=== PATIENT | female | born 1950 | race Caucasian/White ===

== ENCOUNTER → 2019-09-21 08:07 | Outpatient (BNVA) | payer MEDICARE, OTHER, SELFPAY | PROVIDERS: Family Provider Nurse Practitioner; PCP Nurse Practitioner; Visit Provider Nurse Practitioner | DX: E11.22 Type 2 diabetes mellitus with diabetic chronic kidney disease (principal); I10 Essential (primary) hypertension | CPT/HCPCS: 80053; 80061; 83036; 84443; 85025 ==

== ENCOUNTER → 2019-12-21 08:00 | Outpatient (BNVA) | payer MEDICARE, OTHER, SELFPAY | PROVIDERS: Family Provider Nurse Practitioner; PCP Nurse Practitioner; Visit Provider Nurse Practitioner | DX: E11.22 Type 2 diabetes mellitus with diabetic chronic kidney disease (principal); E78.2 Mixed hyperlipidemia; I10 Essential (primary) hypertension | CPT/HCPCS: 80053; 80061; 83036; 84443; 85025 ==

== ENCOUNTER → 2020-03-28 08:47 | Outpatient (BNVA) | payer MEDICARE, OTHER, SELFPAY | PROVIDERS: Family Provider Nurse Practitioner; PCP Nurse Practitioner; Visit Provider Nurse Practitioner | DX: E11.22 Type 2 diabetes mellitus with diabetic chronic kidney disease (principal); I10 Essential (primary) hypertension; E78.2 Mixed hyperlipidemia | CPT/HCPCS: 80053; 80061; 83036; 84443; 85025 ==

== ENCOUNTER → 2020-07-02 08:05 | Outpatient (BNVA) | payer MEDICARE, OTHER, SELFPAY | PROVIDERS: Family Provider Nurse Practitioner; PCP Nurse Practitioner; Visit Provider Nurse Practitioner | DX: E11.22 Type 2 diabetes mellitus with diabetic chronic kidney disease (principal); N18.2 Chronic kidney disease, stage 2 (mild); I10 Essential (primary) hypertension; E78.2 Mixed hyperlipidemia | CPT/HCPCS: 80053; 80061; 83036; 84443; 85025 ==

== ENCOUNTER → 2020-09-26 08:16 | Outpatient (BNVA) | payer MEDICARE, OTHER, SELFPAY | PROVIDERS: Family Provider Nurse Practitioner; PCP Nurse Practitioner; Visit Provider Nurse Practitioner | DX: E11.22 Type 2 diabetes mellitus with diabetic chronic kidney disease (principal); N18.2 Chronic kidney disease, stage 2 (mild); I10 Essential (primary) hypertension; E78.2 Mixed hyperlipidemia | CPT/HCPCS: 80053; 80061; 83036; 84443; 85025 ==

== ENCOUNTER → 2020-12-24 08:23 | Outpatient (BNVA) | payer MEDICARE, OTHER, SELFPAY | PROVIDERS: Family Provider Nurse Practitioner; PCP Nurse Practitioner; Visit Provider Nurse Practitioner | DX: E11.22 Type 2 diabetes mellitus with diabetic chronic kidney disease (principal); N18.2 Chronic kidney disease, stage 2 (mild); E78.2 Mixed hyperlipidemia; I12.9 Hypertensive chronic kidney disease with stage 1 through stage 4 chronic kidney disease, or unspecified chronic kidney disease | CPT/HCPCS: 80053; 82043; 83036; 84443 ==

== ENCOUNTER → 2021-03-25 08:07 | Outpatient (BNVA) | payer MEDICARE, OTHER, SELFPAY | PROVIDERS: Family Provider Nurse Practitioner; PCP Nurse Practitioner; Visit Provider Nurse Practitioner | DX: E78.2 Mixed hyperlipidemia (principal); E11.22 Type 2 diabetes mellitus with diabetic chronic kidney disease; N18.2 Chronic kidney disease, stage 2 (mild); I12.9 Hypertensive chronic kidney disease with stage 1 through stage 4 chronic kidney disease, or unspecified chronic kidney disease | CPT/HCPCS: 80053; 80061; 82043; 83036; 85025 ==

== ENCOUNTER → 2021-04-28 14:40 | Outpatient (BNVA) | payer MEDICARE, OTHER, SELFPAY | PROVIDERS: Family Provider Nurse Practitioner; PCP Nurse Practitioner; Visit Provider Nurse Practitioner | DX: M17.11 Unilateral primary osteoarthritis, right knee (principal); M25.561 Pain in right knee | CPT/HCPCS: 73562 ==

== ENCOUNTER → 2021-06-16 09:13 | Outpatient (BNVA) | payer MEDICARE, OTHER, SELFPAY | PROVIDERS: Family Provider Nurse Practitioner; PCP Nurse Practitioner; Referring Provider Nurse Practitioner; Visit Provider Specialist | DX: M25.561 Pain in right knee (principal); M25.361 Other instability, right knee; M17.11 Unilateral primary osteoarthritis, right knee; M25.551 Pain in right hip | CPT/HCPCS: 73502; 73560; 73565 ==

== ENCOUNTER → 2021-06-17 07:59 | Outpatient (BNVA) | payer MEDICARE, OTHER, SELFPAY | PROVIDERS: Family Provider Nurse Practitioner; PCP Nurse Practitioner; Visit Provider Nurse Practitioner | DX: E11.22 Type 2 diabetes mellitus with diabetic chronic kidney disease (principal); N18.2 Chronic kidney disease, stage 2 (mild); I10 Essential (primary) hypertension | CPT/HCPCS: 80053; 80061; 83036; 85025 ==

== ENCOUNTER → 2021-06-19 08:36 | Outpatient (BNVA) | payer MEDICARE, OTHER, SELFPAY | PROVIDERS: Family Provider Nurse Practitioner; PCP Nurse Practitioner; Visit Provider Nurse Practitioner | DX: D72.829 Elevated white blood cell count, unspecified (principal); E11.22 Type 2 diabetes mellitus with diabetic chronic kidney disease; N18.2 Chronic kidney disease, stage 2 (mild) | CPT/HCPCS: 81000; 85025 ==

== ENCOUNTER 2021-08-29 16:37 | Emergency (ER) | payer MEDICARE, OTHER, SELFPAY ==
[2021-08-29 16:54] VITALS: BP 145/82; PULSE 88; RESP 16; TEMP 36.8; O2SAT 97; BMI 26.6
--- NOTE | 2021-08-29 17:09 | W.ED.GENADLT ---
Documented by User: TUNDE Reyes 08/29/21 19:49 HPI - General Adult General: Chief complaint: General Medical Stated complaint: Thinks there is a bone in throat, since wednesday Time Seen by Provider: 08/29/21 17:08 History of Present Illness: 71-year-old female comes in today with complaints of discomfort with swallowing at the sternal notch. Patient reports on Wednesday she was eating a piece of chicken and she bit into one of the ribs dislodging a piece of bone and swallowing. Patient thinks that she might have a piece of bone stuck in her throat. Patient reports continued discomfort. Patient denies any fever or chills. Patient appears well. Patient appears in mild to no pain. Patient does have a history of gastric reflux, allergic rhinitis, osteoarthritis, and type 2 diabetes. MD complaint: foreign body ingestion Onset (ago): day(s) Exacerbating factors: other (swallowing) Review of Systems General: Reports: 10 or more systems reviewed and unremarkable except in HPI and below GI: Reports: dysphagia (painful) PFSH ED PFSH: Medical History Allergic rhinitis due to pollen Essential (primary) hypertension Gastric reflux Mixed hyperlipidemia TRISTA on CPAP Personal history of smoking Type 2 diabetes mellitus with diabetic chronic kidney disease Surgical History H/O dilation and curettage (~10/2016) Hysteroscopic polypectomy with endometrial curetting [place] [facility] [place] of tubal ligation (~1979) Family History Other Diabetes Hypertension Stroke Social History Second hand smoke exposure: Yes Smoking risk assessment/counseling performed?: Yes Alcohol intake: never Desire information about alcohol rehabilitation?: No Counseling given: No Desire information about substance/drug rehabilitation?: No Counseling given: No Adopted: No Caregiver/support person: No Lives independently: Yes Household members: none Housing: House Marital status: Current occupational status: employed History of recent travel: No Current gender identity: Female Physical Exam Const: COMMON NORMALS: alert HENMT: THROAT: posterior oropharynx normal Neck/C-Spine: COMMON NORMALS: full ROM and no lymphadenopathy Resp: COMMON NORMALS: normal respiratory effort Cardio: COMMON NORMALS: regular rate and regular rhythm RATE: regular rate RHYTHM: regular rhythm Extremity: COMMON NORMALS: normal to inspection Neuro: SENSORIUM/ORIENTATION: Yes alert Psych: COMMON NORMALS: cooperative Course Vital Signs: Vital signs: Vital Signs Temperature 98.3 F 08/29/21 16:54 Pulse Rate 74 08/29/21 19:12 Respiratory Rate 16 08/29/21 19:12 Blood Pressure 120/76 08/29/21 19:12 Pulse Oximetry 95 08/29/21 19:12 [facility] - General Adult Medical Decision Making 71-year-old female comes in today with complaints of painful swallowing. On exam patient appears well. Posterior pharynx is normal. Respirations are even lungs are clear to auscultation. Abdomen soft nontender. Differential diagnosis includes esophagitis, retained foreign body to the esophagus, esophageal perforation. CT of the chest indicated no retained foreign body or signs of abscess or perforation of the esophagus. Recommended patient use Mylanta 4 times a day to help with the healing of the probable abrasion to the esophagus. I encourage plenty of fluids and follow-up with primary care in 3 days for recheck. Recommended patient return to the ER for inability to swallow or high fever. Lab Data Radiology Impressions Chest CT 08/29/21 17:30 IMPRESSION: 1. No acute finding. 2. 5 mm left pulmonary nodule. For patients at low risk (minimal or absent history of smoking and of other known risk factors), no routine follow-up is indicated. For patients at high risk (history of smoking or of other known risk factors), consider optional CT Chest at 12 months. (Reference: Danna) 3. Multiple small calcifications in the breasts. Correlation with mammography recommended. References: Danna Mcleod, et al. Guidelines for Management of Incidental Pulmonary Nodules Detected on CT Images: From the Fleischner Society 2017. Radiology. 2017;284(1):228-243. Discharge Plan Discharge Patient Disposition: Home Clinical Impression: Sensation of foreign body in esophagus Condition: Stable Prescriptions: New Antacid-Simethicone 400-400-40 mg/5 mL suspension 20 ml PO Q6H PRN (Reason: esophagitis) Qty: 240 0RF No Action (DME) pen needle, diabetic 33 gauge x 5/32 needle See Rx Instructions .ROUTE .MEDSUPPLY Qty: 100 11RF Rx Instructions: 2 times day aspirin [Adult Low Dose Aspirin] 81 mg tablet,delayed release (DR/EC) 81 mg PO DAILY 0RF cetirizine 10 mg tablet 10 mg PO DAILY Qty: 90 0RF Byetta 10 mcg/dose(250 mcg/mL) 2.4 mL pen injector 10 mcg SUBCUT BID Qty: 2.4 2RF famotidine 20 mg tablet 20 mg PO DAILY Qty: 90 0RF lisinopril 40 mg tablet 40 mg PO DAILY Qty: 90 0RF metformin 500 mg tablet extended release 24 hr 2,000 mg PO DAILY Qty: 360 0RF montelukast 10 mg tablet 10 mg PO DAILY Qty: 90 0RF meloxicam 15 mg tablet 15 mg PO DAILY Qty: 30 0RF Discharge Orders: Discharge ED (Routine); Ordered 08/29/21 Ordered By: Hakeem Tay Referrals: Dada Frias, BULLET SWAGING MACHINE OPERATOR-C [Primary Care Provider] - Discharge Diet: Advance as tolerated Discharge Activity: Increase activity as tolerated Patient Instructions: Esophagitis (ED), Opioid Safety Activity Restrictions/Additional Instructions: Use Mylanta 20 mL 4 times a day to help with pain and with swallowing. You probably caused an abrasion of your esophagus which is irritated and will be uncomfortable until healed. Using the Mylanta 4 times a day will help decrease acid production and allow for better healing of the abrasion. Eat a soft diet. Follow-up with primary care in 3 days for recheck. Return to ER for worsening symptoms such as inability to swallow, or fever greater than 100.4. 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 Fwd Exam Detailed Medical Decision Making Moderate Complexity Time Spent (min) 30 Documented by User: Yoshi Ochoa DO 08/29/21 21:20 HPI - General Adult General: Chief complaint: General Medical Stated complaint: Thinks there is a bone in throat, since wednesday Time Seen by Provider: 08/29/21 17:08 PFSH ED PFS: Medical History Allergic rhinitis due to pollen Essential (primary) hypertension Gastric reflux Mixed hyperlipidemia TRISTA on CPAP Personal history of smoking Type 2 diabetes mellitus with diabetic chronic kidney disease Surgical History H/O dilation and curettage (~10/2016) Hysteroscopic polypectomy with endometrial curetting Dr Sebastian [facility] [place] History of tubal ligation (~1979) Family History Other Diabetes Hypertension Stroke Social History Second hand smoke exposure: Yes Smoking risk assessment/counseling performed?: Yes Alcohol intake: never Desire information about alcohol rehabilitation?: No Counseling given: No Desire information about substance/drug rehabilitation?: No Counseling given: No Adopted: No Caregiver/support person: No Lives independently: Yes Household members: none Housing: House Marital status: Current occupational status: employed History of recent travel: No Current gender identity: Female Course Vital Signs: Vital signs: Vital Signs Temperature 98.3 F 08/29/21 16:54 Pulse Rate 74 08/29/21 19:12 Respiratory Rate 16 08/29/21 19:12 Blood Pressure 120/76 08/29/21 19:12 Pulse Oximetry 95 08/29/21 19:12 [facility] - General Adult Medical Decision Making 71-year-old female comes in today with complaints of painful swallowing. On exam patient appears well. Posterior pharynx is normal. Respirations are even lungs are clear to auscultation. Abdomen soft nontender. Differential diagnosis includes esophagitis, retained foreign body to the esophagus, esophageal perforation. CT of the chest indicated no retained foreign body or signs of abscess or perforation of the esophagus. Recommended patient use Mylanta 4 times a day to help with the healing of the probable abrasion to the esophagus. I encourage plenty of fluids and follow-up with primary care in 3 days for recheck. Recommended patient return to the ER for inability to swallow or high fever. This patient was originally seen by TUNDE Torres.? I agree with his history, evaluation, and treatment. Lab Data Radiology Impressions Chest CT 08/29/21 17:30
--- NOTE | 2021-08-29 17:30 | CTR_ITS ---
PROCEDURE INFORMATION: Exam: CT Chest Without Contrast; Diagnostic Exam date and time: 08/29/2021 5:30 PM Age: 71 years old Clinical indication: Sternal or substernal pain; Additional info: Foreign body ingestion TECHNIQUE: Imaging protocol: Diagnostic computed tomography of the chest without contrast. Radiation optimization: All CT scans at this facility use at least one of these dose optimization techniques: automated exposure control; mA and/or kV adjustment per patient size (includes targeted exams where dose is matched to clinical indication); or iterative reconstruction. COMPARISON: CR Ribs LEFT* [id number] 10/18/2018 11:36 AM RADIATION DOSE METRICS: Total DLP (mGy-cm): 631.55 FINDINGS: Lungs: Centrilobular emphysema. Calcified granulomas in the right middle lobe. 5 mm left lower lobe nodule, series 2, image 44. Mild atelectasis in the lung bases. Pleural spaces: Unremarkable. No pneumothorax. No pleural effusion. Heart: Coronary artery calcifications. The heart size is normal. Aorta: Unremarkable. No aortic aneurysm. Lymph nodes: Unremarkable. No enlarged lymph nodes. Bones/joints: Unremarkable. No acute fracture. Soft tissues: Numerous small calcifications in both breasts. Mild lipomatosis hypertrophy of the intra-atrial septum. CT/CT chest wo con [id number] IMPRESSION: 1. No acute finding. 2. 5 mm left pulmonary nodule. For patients at low risk (minimal or absent history of smoking and of other known risk factors), no routine follow-up is indicated. For patients at high risk (history of smoking or of other known risk factors), consider optional CT Chest at 12 months. (Reference: Danna) 3. Multiple small calcifications in the breasts. Correlation with mammography recommended. References: Danna Mcleod et al. Guidelines for Management of Incidental Pulmonary Nodules Detected on CT Images: From the Fleischner Society 2017. Radiology. 2017;284(1):228-243.
[2021-08-29 19:12] VITALS: BP 120/76; PULSE 74; RESP 16; O2SAT 95
[2021-08-29] MEDS: alum-mag-hydroxide-sime 30 mL UDC PO (19:47)
== END 2021-08-29 19:52 | disposition home or self-care (01) ==
PROVIDERS: Emergency Provider Nurse Practitioner Family; PCP Nurse Practitioner
DX: R09.89 Other specified symptoms and signs involving the circulatory and respiratory systems (principal); Z79.82 Long term (current) use of aspirin; Z79.84 Long term (current) use of oral hypoglycemic drugs; E78.2 Mixed hyperlipidemia; E11.22 Type 2 diabetes mellitus with diabetic chronic kidney disease; I12.9 Hypertensive chronic kidney disease with stage 1 through stage 4 chronic kidney disease, or unspecified chronic kidney disease; N18.9 Chronic kidney disease, unspecified
CPT/HCPCS: 71250; 99283

== ENCOUNTER → 2021-09-09 07:55 | Outpatient (BNVA) | payer MEDICARE, OTHER, SELFPAY | PROVIDERS: PCP Nurse Practitioner; Visit Provider Nurse Practitioner | DX: E11.22 Type 2 diabetes mellitus with diabetic chronic kidney disease (principal); I10 Essential (primary) hypertension | CPT/HCPCS: 80053; 80061; 83036; 84443 ==

== ENCOUNTER → 2021-09-25 09:40 | Outpatient (BNVA) | payer MEDICARE, OTHER, SELFPAY | PROVIDERS: PCP Nurse Practitioner; Visit Provider Specialist | DX: M25.561 Pain in right knee (principal); M17.11 Unilateral primary osteoarthritis, right knee; G89.29 Other chronic pain | CPT/HCPCS: 80500; 89051 ==

== ENCOUNTER → 2021-12-16 09:23 | Outpatient (BNVA) | payer MEDICARE, OTHER, SELFPAY | PROVIDERS: PCP Nurse Practitioner; Visit Provider Nurse Practitioner | DX: E78.2 Mixed hyperlipidemia (principal); I10 Essential (primary) hypertension | CPT/HCPCS: 80053; 80061; 83036; 84443; 85025 ==

== ENCOUNTER → 2022-01-01 07:54 | Outpatient (BNVA) | payer MEDICARE, OTHER, SELFPAY | PROVIDERS: PCP Nurse Practitioner; Visit Provider Specialist | DX: M17.11 Unilateral primary osteoarthritis, right knee (principal); M25.561 Pain in right knee | CPT/HCPCS: 20610; J7327 ==

== ENCOUNTER → 2022-03-17 08:11 | Outpatient (BNVA) | payer MEDICARE, SELFPAY | PROVIDERS: PCP Nurse Practitioner; Visit Provider Nurse Practitioner | DX: E11.22 Type 2 diabetes mellitus with diabetic chronic kidney disease (principal); E78.2 Mixed hyperlipidemia; I10 Essential (primary) hypertension | CPT/HCPCS: 80053; 80061; 83036; 84443; 85025 ==

== ENCOUNTER → 2022-03-25 08:48 | Outpatient (BNVA) | payer MEDICARE, SELFPAY | PROVIDERS: PCP Nurse Practitioner; Visit Provider Nurse Practitioner | DX: E11.22 Type 2 diabetes mellitus with diabetic chronic kidney disease (principal); N18.2 Chronic kidney disease, stage 2 (mild); E87.5 Hyperkalemia | CPT/HCPCS: 80048 ==

== ENCOUNTER → 2022-04-09 08:27 | Outpatient (BNVA) | payer MEDICARE, OTHER, SELFPAY | PROVIDERS: PCP Nurse Practitioner; Visit Provider Specialist | DX: M17.11 Unilateral primary osteoarthritis, right knee (principal) | CPT/HCPCS: 20610; J1100; J2795; J3301 ==

== ENCOUNTER → 2022-06-18 08:05 | Outpatient (BNVA) | payer MEDICARE, OTHER, SELFPAY | PROVIDERS: PCP Nurse Practitioner; Visit Provider Nurse Practitioner | DX: E11.22 Type 2 diabetes mellitus with diabetic chronic kidney disease (principal); N18.2 Chronic kidney disease, stage 2 (mild); E78.2 Mixed hyperlipidemia | CPT/HCPCS: 80053; 80061; 83036; 84443 ==

== ENCOUNTER → 2022-06-23 08:57 | Outpatient (BNVA) | payer MEDICARE, OTHER, SELFPAY | PROVIDERS: PCP Nurse Practitioner; Visit Provider Nurse Practitioner | DX: J30.1 Allergic rhinitis due to pollen (principal); E11.22 Type 2 diabetes mellitus with diabetic chronic kidney disease; N18.2 Chronic kidney disease, stage 2 (mild); I10 Essential (primary) hypertension; L29.9 Pruritus, unspecified | CPT/HCPCS: 81000 ==

== ENCOUNTER → 2022-07-09 10:15 | Outpatient (BNVA) | payer MEDICARE, OTHER, SELFPAY | PROVIDERS: PCP Nurse Practitioner; Visit Provider Specialist | DX: M17.11 Unilateral primary osteoarthritis, right knee (principal); Z71.89 Other specified counseling | CPT/HCPCS: 20610; J7318 ==

== ENCOUNTER → 2022-08-20 13:11 | Outpatient (BNVA) | payer MEDICARE, OTHER, SELFPAY | PROVIDERS: PCP Nurse Practitioner; Referring Provider Nurse Practitioner Family; Visit Provider Nurse Practitioner Family | DX: R21 Rash and other nonspecific skin eruption (principal) | CPT/HCPCS: 88305; 88312 ==

== ENCOUNTER → 2022-09-09 08:08 | Outpatient (BNVA) | payer MEDICARE, OTHER, SELFPAY | PROVIDERS: PCP Nurse Practitioner; Visit Provider Nurse Practitioner | DX: E78.2 Mixed hyperlipidemia (principal); E11.22 Type 2 diabetes mellitus with diabetic chronic kidney disease; N18.2 Chronic kidney disease, stage 2 (mild) | CPT/HCPCS: 80053; 80061; 83036; 84443 ==

== ENCOUNTER → 2022-09-23 08:52 | Outpatient (BNVA) | payer MEDICARE, OTHER, SELFPAY | PROVIDERS: PCP Nurse Practitioner; Visit Provider Nurse Practitioner | DX: E11.22 Type 2 diabetes mellitus with diabetic chronic kidney disease (principal); N18.2 Chronic kidney disease, stage 2 (mild); E78.2 Mixed hyperlipidemia; J30.1 Allergic rhinitis due to pollen; I10 Essential (primary) hypertension; L23.9 Allergic contact dermatitis, unspecified cause | CPT/HCPCS: 81000; 82043 ==

== ENCOUNTER 2022-10-08 11:25 | Outpatient (CLI) | payer MEDICARE, OTHER, SELFPAY ==
--- NOTE | 2022-10-08 11:34 | MM_ITS ---
WS: [id number] SCREENING DIGITAL BREAST TOMOSYNTHESIS MAMMOGRAM WITH CAD HISTORY: SCREEN COMPARISON: 09/24/2017, 02/12/2016 Bilateral CC and MLO with tomosynthesis and synthetic mammography submitted. Computer aided detection analyzed. Breast composition: The breasts are heterogeneously dense, which may obscure small masses. Dense fibr oglandular tissue and calcifications in the anterior breast. In the RIGHT anterior breast there is a possible partially obscured mass measuring 3.0 x 2.9 cm. Seen best on the CC projection posterior to the nipple. MM/[place] [id number] IMPRESSION: BI-RADS: 0-Incomplete: Need additional imaging evaluation FOLLOW UP: Need Additional Imaging Recommendation: RIGHT breast ultrasound, limited. Evaluate directly posterior t o the RIGHT nipple in the anterior breast for a possible 3.0 cm mass.
== END 2022-10-08 11:26 | disposition home or self-care (01) ==
LOC: RAD 11:28
PROVIDERS: PCP Nurse Practitioner; Visit Provider Nurse Practitioner
DX: Z12.31 Encounter for screening mammogram for malignant neoplasm of breast (principal)
CPT/HCPCS: 77063; 77067

== ENCOUNTER → 2022-10-15 10:03 | Outpatient (BNVA) | payer MEDICARE, OTHER, SELFPAY | PROVIDERS: PCP Nurse Practitioner; Visit Provider Specialist | DX: M17.11 Unilateral primary osteoarthritis, right knee (principal) | CPT/HCPCS: 20610; J1100; J2795; J3301 ==

== ENCOUNTER 2022-10-19 10:01 | Outpatient (CLI) | payer MEDICARE, OTHER, SELFPAY ==
--- NOTE | 2022-10-19 10:06 | US_ITS ---
WS: [id number] ULTRASOUND RIGHT BREAST HISTORY: ABNORMAL MAMMO COMPARISON: 10/08/2022 TECHNIQUE: 2-D and Doppler. No masses identified within the anterior RIGHT breast. Findings on the recent mammogram are probably superimposed fibroglandular tissues. No shadowing or solid or cystic mass. US/US breast RT limited* [id number] IMPRESSION: BI-RADS: 2-Benign FOLLOW-UP: 1 Year Follow-up
== END 2022-10-19 10:02 | disposition home or self-care (01) ==
LOC: RAD 10:04
PROVIDERS: PCP Nurse Practitioner; Visit Provider Nurse Practitioner
DX: R92.8 Other abnormal and inconclusive findings on diagnostic imaging of breast (principal)
CPT/HCPCS: 76642

== ENCOUNTER → 2022-12-08 08:24 | Outpatient (BNVA) | payer MEDICARE, OTHER, SELFPAY | PROVIDERS: PCP Nurse Practitioner; Visit Provider Nurse Practitioner | DX: E78.2 Mixed hyperlipidemia (principal); E11.22 Type 2 diabetes mellitus with diabetic chronic kidney disease; N18.2 Chronic kidney disease, stage 2 (mild) | CPT/HCPCS: 80053; 80061; 83036; 84443; 85025 ==

== ENCOUNTER 2022-12-25 13:47 | Outpatient (CLI) | payer MEDICARE, OTHER, SELFPAY ==
--- NOTE | 2022-12-25 14:30 | CT_ITS ---
WS: [id number] LDCT LUNG CANCER SCREENING HISTORY: Z87.891 - Personal history of nicotine dependence TECHNIQUE: Axial imaging performed from the apices to 1 cm below the costophrenic angles. Coronal and sagittal reformats are submitted with axial MIP series. All CT scans at [facility] use at least one of these dose optimization techniques: automated exposure control; mA and/or kV adjustment per patient size (includes targeted exams where dose is matched to clinical indication); or iterativ e reconstruction. DLP: 55.89 mGy.cm DIvol: Mean CTDIvol: 1.00 (mGy) COMPARISON: 08/29/2021 Diagnostic quality: Satisfactory Lungs: Noncalcified 4 mm nodule, subpleural LEFT lower lobe. Stable since 08/29/2021. No mass or pneum onia. No endobronchial lesions. Benign granuloma RIGHT middle lobe. Heart: Normal size heart with no pericardial effusion. Coronary artery calcifications. Other findings: Mild atherosclerosis aorta. Small hiatal hernia. CT/CT lung screening [id number] IMPRESSION: LUNG-RADS: 2-Benign Appearance or Behavior FOLLOW UP: 12 Month: Continue annual screening with LDCT OTHER FINDINGS (S MODIFIER): None.
== END 2022-12-25 13:48 | disposition home or self-care (01) ==
LOC: RAD 13:50
PROVIDERS: PCP Nurse Practitioner; Visit Provider Nurse Practitioner
DX: Z12.2 Encounter for screening for malignant neoplasm of respiratory organs (principal); Z87.891 Personal history of nicotine dependence
CPT/HCPCS: 71271

== ENCOUNTER → 2023-01-14 14:24 | Outpatient (BNVA) | payer MEDICARE, OTHER, SELFPAY | PROVIDERS: PCP Nurse Practitioner; Visit Provider Specialist | DX: M17.11 Unilateral primary osteoarthritis, right knee (principal) | CPT/HCPCS: 20610; J7318 ==

== ENCOUNTER → 2023-03-08 08:03 | Outpatient (BNVA) | payer MEDICARE, OTHER, SELFPAY | PROVIDERS: PCP Nurse Practitioner; Visit Provider Nurse Practitioner | DX: E11.22 Type 2 diabetes mellitus with diabetic chronic kidney disease (principal) | CPT/HCPCS: 80053; 80061; 83036; 84443; 85025 ==

== ENCOUNTER 2023-05-10 08:44 | Emergency (ER) | payer MEDICARE, OTHER, SELFPAY ==
[2023-05-10 08:53] VITALS: BP 123/77; PULSE 102; RESP 17; TEMP 36.9; O2SAT 94; BMI 25.0
--- NOTE | 2023-05-10 09:16 | XR_ITS ---
WS: [id number] Exam: XR chest 1V portable [id number] Date/Time of Exam: 05/10/2023 9:21 AM Reason For Exam: weakness Comparison 10/18/2018. The lungs are hyperinflated and clear. Normal cardiomediastinal silhouette. No pleural effusions. Bon y structures are intact. IMPRESSION: 1. Pulmonary hyperinflation. No acute process.
--- NOTE | 2023-05-10 09:17 | ECG_ITS ---
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 Measurements Intervals [place] Rate: 96 P: 69 SC: 207 QRS: -81 QRSD: 153 T: 46 QT: 366 QTc: 465 Interpretive Statements SINUS RHYTHM RIGHT BUNDLE BRANCH BLOCK [120+ ms QRS DURATION, UPRIGHT V1, 40+ ms S IN I/aVL/V4/V5/V6] LEFT ANTERIOR FASCICULAR BLOCK [QRS AXIS <= -45, QR IN I, RS IN II] Compared to ECG 10/26/2016 09:04:59 Myocardial infarct finding no longer present Electronically Signed On 05-10-2023 10:10:04 CDT by Magaly Trimble M.D. [email or web address]
--- NOTE | 2023-05-10 09:17 | W.ED.WEAKNES ---
HPI - Weakness General: Chief complaint: Weakness Stated complaint: NVD, weakness, diabetic Time Seen by Provider: 05/10/23 09:04 Source: patient and family Mode of arrival: wheelchair Limitations: no limitations History of Present Illness: Patient is a 72-year-old female with history of diabetes, GERD, sleep apnea, HTN here for complaints of generalized weakness. She states over the past 2 days she has been feeling weak. She has had a few episodes of nonbloody emesis as well as nonbloody diarrhea. She is not having any abdominal pain. Family feels like today she felt warm but she has no documented fevers. Patient states she wears a CPAP at night and has not been wearing it over the past 2 days that she has been sleeping in her recliner/couch due to feeling unwell. She feels like this has affected her breathing although does not reportedly feel short of breath. She is not having any chest pain. No cough/hemoptysis. Patient denies urinary symptoms. She states yesterday she fell secondary to weakness and has some mild tailbone pain. She denies striking her head or LOC. No neck or back pain. MD Complaint: generalized weakness Onset (ago): day(s) Duration: constant Location: generalized Migration: none Severity: moderate Relieving factors: none Exacerbating factors: exertion Associated symptoms: Reports fever(s) (subjective), nausea and vomiting; Denies chest pain, chills, melena, dysuria, headache(s) or syncope Review of Systems Const: Reports: fever(s) (subjective), fatigue and other (generalized weakness); Denies: chills, body aches or malaise Eyes: Denies: change in vision, blurry vision, floaters or seeing flashes ENMT: Denies: throat pain, odynophagia, nasal discharge, nasal congestion or sinus pain Card: Denies: chest pain, palpitations, irregular heart rhythm, edema, swelling of feet/ankles, lightheadedness, syncope, pre-syncope, dyspnea on exertion, leg pain with exertion or acrocyanosis Resp: Denies: dyspnea, productive cough, wheezing, pain on inspiration, hemoptysis or chest congestion GI: Reports: nausea, vomiting and diarrhea; Denies: abdominal pain, hematemesis, heartburn, hematochezia or melena : Denies: flank pain, difficulty voiding, dysuria, urinary frequency, urinary urgency or urinary hesitancy Musc: Denies: neck pain, back pain, extremity pain, extremity swelling or joint pain Skin/Breast: Denies: rash Neuro: Denies: headache(s), numbness in extremities, weakness in extremities, sensory changes or dizziness PFSH ED PFSH: Medical History Allergic dermatitis Allergic rhinitis due to pollen Essential (primary) hypertension Gastric reflux Mixed hyperlipidemia TRISTA on CPAP Personal history of smoking Type 2 diabetes mellitus with diabetic chronic kidney disease Surgical History H/O dilation and curettage (~10/2016) Hysteroscopic polypectomy with [place] curetting [place] [facility] [place]al ligation (~1979) Family History Other Diabetes Hypertension Stroke Social History Smoking and tobacco/nicotine status: current every day tobacco/nicotine user Second hand smoke exposure: Yes Alcohol intake: never Substance/Drug Use: never Adopted: No Caregiver/support person: No Lives independently: Yes Household members: none Housing: House Marital status: Current occupational status: employed Do you think of yourself as: Straight/Heterosexual Current gender identity: Female Physical Exam Const: COMMON NORMALS: no acute distress, average body habitus, patient oriented x3, no limitations, healthy appearing, alert and well nourished GENERAL APPEARANCE: cooperative ORIENTATION/CONSCIOUSNESS: Yes awake, Yes oriented to person, Yes oriented to place and Yes oriented to time HENMT: COMMON NORMALS: normocephalic and atraumatic HEAD & SCALP: normal to inspection, normocephalic and atraumatic FACE & SINUS: normal facial exam Eye: COMMON NORMALS: Equal, round and reactive pupils present and EOMs intact bilaterally GENERAL EYE: appearance normal, both eyes and all related structures and normal light reflex PUPIL: Yes Equal, round and reactive pupils present DIRECT OPHTHALMOSCOPY: Yes normal light reflex Neck/C-Spine: COMMON NORMALS: full ROM, no lymphadenopathy, supple, no meningeal signs and no JVD GENERAL: Yes normal visual inspection Chest: COMMONS NORMALS: normal inspection of the chest and normal palpation of entire chest wall Resp: COMMON NORMALS: normal respiratory effort AUSCULTATION: crackles Laterality: left Cardio: COMMON NORMALS: no JVD, regular rate and regular rhythm RATE: regular rate RHYTHM: regular rhythm GI: COMMON NORMALS: Normal to inspection, nondistended, normoactive bowel sounds present, Soft to palpation, non-tender, No hepatosplenomegaly present and no masses PALPATION: Yes Soft to palpation and Yes No hepatosplenomegaly present : COMMON NORMALS: Yes no CVA tenderness BLADDER/KIDNEY EXAM: Yes no CVA tenderness Back/Pelvis: COMMON NORMALS: no CVA tenderness, thoracic and lumbar spine normal to inspection, no thoracic nor lumbar tenderness and thoraco-lumbar ROM normal Extremity: COMMON NORMALS: normal to inspection, capillary refill normal, no clubbing, cyanosis or edema, no calf tenderness and no pedal edema GENERAL: Yes normal exam except as noted Neuro: SKYE COMA SCALE: document GCS findings Skye coma scale eye opening: Spontaneous Skye coma scale verbal response: Orientated Skye coma scale motor response: Obey commands Skye coma scale total score: 15 COMMON NORMALS: patient oriented x3, moves all extremities, no focal motor deficits and no sensory deficits noted SENSORIUM/ORIENTATION: Yes alert, Yes oriented to person, Yes oriented to place and Yes oriented to time MENINGEAL SIGNS: Yes no meningeal signs Skin: COMMON NORMALS: no rashes or lesions noted GENERAL SKIN EXAM: no rashes or lesions noted TRAUMA: no lacerations or abrasions Course Vital Signs: Vital signs: Vital Signs Temperature 98.4 F 05/10/23 08:53 Pulse Rate 100 05/10/23 11:00 Respiratory Rate 17 05/10/23 08:53 Blood Pressure 139/75 05/10/23 11:00 Pulse Oximetry 95 05/10/23 11:00 Oxygen Delivery Me thod Room Air 05/10/23 10:30 MDM - Weakness Medical Decision Making Patient clinically appears in no acute distress. She arrives with stable vital signs. Blood work shows a mild white count of 15.8. Minor nonspecific derangements on her chemistry panel. Tbili of 1.5 however she has completely normal remainder LFTs. She has no abdominal pain. She has a baseline troponin of 16 with a negative delta. EKG is nonischemic. Her CXR is normal. UA suspicious for UTI with a hazy appearance, 2+ blood, 1+ leuks, 10-15 WBCs, 1+ bacteria. She will be treated for an acute cystitis. Respiratory panel pending. Return to ED precautions given. Lab Data 05/10/23 09:14 05/10/23 09:14 Laboratory Results WBC 15.88 10^3/uL (3.29-11.43) H 05/10/23 09:14 RBC 4.24 10^6/uL (3.85-5.65) 05/10/23 09:14 Hgb 14.20 g/dL (11.27-16.99) 05/10/23 09:14 Hct 41.2 % (36-47) 05/10/23 09:14 MCV 97.2 fl (85-98) 05/10/23 09:14 MCH 33.5 pg (27-33) H 05/10/23 09:14 MCHC 34.5 g/dL (30-55) 05/10/23 09:14 RDW 13.3 % (12.1-15.1) 05/10/23 09:14 Plt Count 213 10^3/cmm (157-399) 05/10/23 09:14 MPV 8.6 fL (7.4-10.4) 05/10/23 09:14 Neut % (Auto) 87.2 % 05/10/23 09:14 Lymph % (Auto) 6.3 % 05/10/23 09:14 Duchesne % (Auto) 5.6 % 05/10/23 09:14 Eos % (Auto) 0.0 % 05/10/23 09:14 Baso % (Auto) 0.2 % 05/10/23 09:14 Neut # (Auto) 13.85 10^3/uL (1.8-7.7) H 05/10/23 09:14 Lymph # (Auto) 1.0 10^3/uL (0.8-4.8) 05/10/23 09:14 Duchesne # (Auto) 0.9 10^3/uL (0.2-0.9) 05/10/23 09:14 Eos # (Auto) 0.0 10^3/uL (0.0-0.8) 05/10/23 09:14 Baso # (Auto) 0.0 10^3/uL (0.0-0.1) 05/10/23 09:14 Nucleated RBC % (auto) 0 % 05/10/23 09:14 Nucleated RBCs # 0.0 /100WBC 05/10/23 09:14 Sodium 132 mmol/L (136-145) L 05/10/23 09:14 Potassium 3.8 mmol/L (3.5-5.1) 05/10/23 09:14 Chloride 98 mmol/L (98-107) 05/10/23 09:14 Carbon Dioxide 21 mmol/L (22-29) L 05/10/23 09:14 Anion Gap 16.8 (5-19) 05/10/23 09:14 BUN 19 mg/dL (8-23) 05/10/23 09:14 Creatinine 0.9 mg/dL (0.5-0.9) 05/10/23 09:14 GFR Calculation Not Reportable 05/10/23 09:14 Glucose 166 mg/dL (65-115) H 05/10/23 09:14 POC Glucose 177 mg/dL (70-110) H 05/10/23 09:17 Calculated Osmolality 280 mOsm/kg (285-295) L 05/10/23 09:14 Calcium 9.6 mg/dL (8.5-10.5) 05/10/23 09:14 Total Bilirubin 1.5 mg/dL (0.15-1.2) H 05/10/23 09:14 AST 16 U/L (0-32) 05/10/23 09:14 ALT 16 U/L (0-33) 05/10/23 09:14 Alkaline Phosphatase 59 U/L (35-105) 05/10/23 09:14 Troponin T Baseline 16 ng/L (0-10) H 05/10/23 09:14 Troponin T 120 Minute 14.99 ng/L (0-10) H 05/10/23 11:00 Delta Troponin T -1.01 ABS# (0-10) L 05/10/23 11:00 Total Protein 7.4 g/dL (6.6-8.7) 05/10/23 09:14 Albumin 4.1 g/dL (3.5-5.2) 05/10/23 09:14 Globulin 3.3 g/dL (1.3-4.6) 05/10/23 09:14 Lipase 36 U/L (13-60) 05/10/23 09:14 Urine Color Yellow (Yellow) 05/10/23 10:47 Urine Appearance Sl hazy (CLEAR) A 05/10/23 10:47 Urine pH 5 (5-7) 05/10/23 10:47 Ur Specific [place] 1.025 (1.005-1.030) 05/10/23 10:47 Urine Protein 1+ (Negative) H 05/10/23 10:47 Urine Glucose (UA) Norm (Normal) 05/10/23 10:47 Urine Ketones 3+ (Negative) H 05/10/23 10:47 Urine Blood 2+ (Negative) H 05/10/23 10:47 Urine Nitrate Negative (Negative) 05/10/23 10:47 Urine Bilirubin 1+ (Negative) H 05/10/23 10:47 Urine Urobilinogen 4 mg/dL (Negative) H 05/10/23 10:47 Ur Leukocyte Esterase 1+ (Negative) H 05/10/23 10:47 Urine RBC 5-10 /hpf (0-2) H 05/10/23 10:47 Urine WBC 10-15 /hpf (0-5) H 05/10/23 10:47 Ur Squamous Epith Cells 5-10 /hpf (0-5) H 05/10/23 10:47 Amorphous Sediment Not Reportable 05/10/23 10:47 Urine Bacteria 1+ /hpf (NONE) H 05/10/23 10:47 Urine Mucus Trace /hpf 05/10/23 10:47 Serum Ketones Negative (Negative) 05/10/23 09:14 SARS-CoV-2 Ag (Rapid) negative (Negative) 05/10/23 09:40 All radiology interpretation(s) finalized by discharge Discharge Plan Discharge Patient Disposition: Home Clinical Impression: Acute cystitis Qualifiers: Hematuria presence: with hematuria Qualified Code(s): N30.01 - Acute cystitis with hematuria Condition: Stable Prescriptions: New cephalexin 500 mg capsule 500 mg PO Q6H 7 Days Qty: 28 0RF No Action aspirin [Adult Low Dose Aspirin] 81 mg tablet,delayed release (DR/EC) 81 mg PO DAILY (DME) pen needle, diabetic 33 gauge x 5/32 needle See Rx Instructions .ROUTE .MEDSUPPLY Qty: 100 11RF Rx Instructions: 2 times day Victoza 3-Marko 0.6 mg/0.1 mL (18 mg/3 mL) pen injector 1.8 mg SUBCUT DAILY Qty: 18 2RF glipizide 10 mg tablet extended release 24hr 10 mg PO DAILY Qty: 90 0RF metformin 500 mg tablet extended release 24 hr 1,000 mg PO DAILY Qty: 180 0RF lisinopril 40 mg tablet 40 mg PO DAILY Qty: 90 0RF montelukast 10 mg tablet 10 mg PO DAILY Qty: 90 0RF rosuvastatin [Crestor] 5 mg tablet 5 mg PO DAILY Qty: 90 0RF famotidine 20 mg tablet 20 mg PO DAILY Qty: 90 0RF cetirizine 10 mg tablet 10 mg PO DAILY Qty: 90 0RF triamcinolone acetonide 0.1 % ointment 1 applic topical BID 14 Days Qty: 453.6 1RF Rx Instructions: Apply to affected areas twice daily, as needed. alum-mag hydroxide-simeth [Antacid-Simethicone] 400-400-40 mg/5 mL suspension 20 ml PO Q6H PRN (Reason: esophagitis) Qty: 240 0RF Discharge Orders: Discharge ED (Routine); Ordered 05/10/23 Ordered By: Shannan King Referrals: Dada Frias, LARONC [Primary Care Provider] - Activity Restrictions/Additional Instructions: As we discussed your urine today was suspicious for a urinary tract infection. You will be placed on antibiotics for this. We will obtain a culture of your urine for definitive confirmation. As we discussed please follow-up with your primary care provider later this week. Your respiratory panel is currently pending and you will be contacted if anything comes back positive. You need to return to the emergency department for repetitive episodes of vomiting, inability to hold down your antibiotics, fevers, generally feeling worse/unwell, severe abdominal/flank pain, shortness of breath, chest pain, or any other concerns you may have. I hope you begin to feel better soon. Coding Level of Care Code ED Breed To Wean Production Technician for Danish Ayala
[2023-05-10 09:22] LABS: Basophils % 0.2 %; Hematocrit 41.2 % (36-47); Lymphocytes % 6.3 %; Mean Corpuscular HGB Conc 34.5 g/dL (30-55); Mean Corpuscular Hemoglobin 33.5 pg (27-33); Mean Corpuscular Volume 97.2 fl (85-98); Mean Platelet Volume 8.6 fL (7.4-10.4); Monocytes # 0.9 10^3/uL (0.2-0.9); Monocytes % 5.6 %; Neutrophils # 13.85 10^3/uL (1.8-7.7); Neutrophils % 87.2 %; Nucleated Red Blood Cells % 0 %; Platelet Count 213 10^3/cmm (157-399); Red Blood Count 4.24 10^6/uL (3.85-5.65); Red Cell Distribution Width 13.3 % (12.1-15.1); White Blood Count 15.88 10^3/uL (3.29-11.43)
[2023-05-10 09:25] LABS: Glucose Point of Care 177 mg/dL (70-110)
[2023-05-10 09:26] VITALS: BP 147/53; PULSE 99; O2SAT 97
[2023-05-10] MEDS: sodium chloride 0.9% 1,000 ML 999 ML IV ×2 (09:34→11:04)
[2023-05-10] MEDS: ondansetron 2 mg/ML SDV 2 mL 4 MG IVP (09:34)
[2023-05-10 09:37] LABS: Alanine Aminotransferase 16 U/L (0-33); Albumin Level 4.1 g/dL (3.5-5.2); Alkaline Phosphatase 59 U/L (35-105); Anion Gap 16.8 (5-19); Aspartate Amino Transferase 16 U/L (0-32); Blood Urea Nitrogen 19 mg/dL (8-23); Calcium 9.6 mg/dL (8.5-10.5); Carbon Dioxide 21 mmol/L (22-29); Chloride 98 mmol/L (98-107); Globulin 3.3 g/dL (1.3-4.6); Glucose 166 mg/dL (65-115); Lipase 36 U/L (13-60); Osmolality Calculated 280 mOsm/kg (285-295); Potassium 3.8 mmol/L (3.5-5.1); Sodium 132 mmol/L (136-145); Total Bilirubin 1.5 mg/dL (0.15-1.2); Total Protein 7.4 g/dL (6.6-8.7)
[2023-05-10 09:55] LABS: Ketone (Acetest) Serum Negative (Negative)
[2023-05-10 10:04] LABS: SARS Covid-2 Antigen negative (Negative)
[2023-05-10 10:30] VITALS: PULSE 93; O2SAT 93
[2023-05-10 10:30] LABS: Troponin(5th) Baseline 16 ng/L (0-10)
[2023-05-10 11:00] VITALS: BP 139/75; PULSE 100; O2SAT 95
[2023-05-10 11:13] LABS: Add Urine Microscopic? YES; Bilirubin Urine 1+ (Negative); Blood Urine 2+ (Negative); Glucose Urine UA Norm (Normal); Ketones Urine 3+ (Negative); Leukocyte Esterase Urine 1+ (Negative); Nitrate Urine Negative (Negative); Protein Urine 1+ (Negative); Specific Gravity, Urine 1.025 (1.005-1.030); Urine Appearance SL Hazy (CLEAR); Urine Color Yellow (Yellow); Urobilinogen Urine 4 mg/dL (Negative); pH Urine 5 (5-7)
[2023-05-10 11:20] LABS: Bacteria Urine 1+ /hpf; Mucus Urine TRACE /hpf
[2023-05-10 11:21] LABS: Add Urine Culture? Yes
--- NOTE | 2023-05-10 11:30 | ECG_ITS ---
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 Measurements Intervals [place] Rate: 97 P: 71 HI: 218 QRS: -77 QRSD: 158 T: 0 QT: 371 QTc: 473 Interpretive Statements SINUS RHYTHM WITH FIRST DEGREE AV BLOCK LEFT AXIS DEVIATION [QRS AXIS < -30] RIGHT BUNDLE BRANCH BLOCK [120+ ms QRS DURATION, UPRIGHT V1, 40+ ms S IN I/aVL/V4/V5/V6] Compared to ECG 05/10/2023 09:17:38 First degree AV block now present Left-axis deviation now present Left anterior fascicular block no longer present Electronically Signed On 05-10-2023 12:44:01 CDT by Magaly Trimble M.D. [email or web address]
[2023-05-10 11:32] LABS: Troponin 5 2HR 14.99 ng/L (0-10)
[2023-05-10 11:33] LABS: Troponin 5 2HR Delta -1.01 ABS# (0-10)
[2023-05-10 12:30] LABS: Adenovirus Not Detected (NOT DETECT); Chlamydia Pneumoniae Not Detected (NOT DETECT); Coronavirus 229E,HKU1,NL63,OC4 Not Detected (NOT DETECT); Human Metapneumovirus Not Detected (NOT DETECT); Human Rhinovirus/Enterovirus Not Detected (NOT DETECT); Influenza A Not Detected (NOT DETECT); Influenza A H1 Not Detected (NOT DETECT); Influenza A H1-2009 Not Detected (NOT DETECT); Influenza A H3 Not Detected (NOT DETECT); Influenza B Not Detected (NOT DETECT); Mycoplasma Pneumoniae Not Detected (NOT DETECT); Parainfluenza Virus Type 1 Not Detected (NOT DETECT); Parainfluenza Virus Type 2 Not Detected (NOT DETECT); Parainfluenza Virus Type 3 Not Detected (NOT DETECT); Parainfluenza Virus Type 4 Not Detected (NOT DETECT); Respiratory Syncytial Virus A Not Detected (NOT DETECT); Respiratory Syncytial Virus B Not Detected (NOT DETECT); SARS-COV-2 Not Detected (NOT DETECT)
== END 2023-05-10 12:04 | disposition home or self-care (01) ==
PROVIDERS: Family Medicine; Emergency Provider Physician Assistant; PCP Nurse Practitioner
DX: N30.01 Acute cystitis with hematuria (principal); Z79.82 Long term (current) use of aspirin; Z79.84 Long term (current) use of oral hypoglycemic drugs; Z11.52 Encounter for screening for COVID-19; I10 Essential (primary) hypertension; E78.2 Mixed hyperlipidemia; E11.9 Type 2 diabetes mellitus without complications; F17.210 Nicotine dependence, cigarettes, uncomplicated
CPT/HCPCS: 36415; 36416; 71045; 80053; 81001; 82009; 82962; 83690; 84484; 85025; 87086; 87426; 87486; 87581; 87633; 93005; 96361; 96374; 99285; J2405; J7030

== ENCOUNTER → 2023-05-19 12:02 | Outpatient (BNVA) | payer MEDICARE, OTHER, SELFPAY | PROVIDERS: PCP Nurse Practitioner Family; Visit Provider Nurse Practitioner Family | DX: N39.0 Urinary tract infection, site not specified (principal) | CPT/HCPCS: 81003 ==

== ENCOUNTER → 2023-06-04 13:25 | Outpatient (BNVA) | payer MEDICARE, OTHER, SELFPAY | PROVIDERS: PCP Nurse Practitioner Family; Visit Provider Nurse Practitioner Family | DX: R05.9 Cough, unspecified (principal); M25.551 Pain in right hip; J98.11 Atelectasis | CPT/HCPCS: 71046 ==

== ENCOUNTER → 2023-06-09 09:31 | Outpatient (BNVA) | payer MEDICARE, OTHER, SELFPAY | PROVIDERS: PCP Nurse Practitioner Family; Referring Provider Nurse Practitioner Family; Visit Provider Internal Medicine Cardiovascular Disease | DX: I45.10 Unspecified right bundle-branch block (principal) | CPT/HCPCS: 99204 ==

== ENCOUNTER → 2023-07-22 12:15 | Outpatient (BNVA) | payer MEDICARE, OTHER, SELFPAY | PROVIDERS: PCP Nurse Practitioner Family; Visit Provider Nurse Practitioner Family | DX: E11.22 Type 2 diabetes mellitus with diabetic chronic kidney disease (principal); N18.2 Chronic kidney disease, stage 2 (mild); E55.9 Vitamin D deficiency, unspecified | CPT/HCPCS: 80053; 80061; 82306; 82607; 83036; 83735; 84443; 85025 ==

== ENCOUNTER → 2023-10-05 11:18 | Outpatient (BNVA) | payer OTHER, SELFPAY | PROVIDERS: PCP Nurse Practitioner Family; Visit Provider Internal Medicine Cardiovascular Disease | DX: R07.9 Chest pain, unspecified (principal); I45.10 Unspecified right bundle-branch block; I44.0 Atrioventricular block, first degree | CPT/HCPCS: 93005 ==

== ENCOUNTER 2023-10-07 20:00 | Outpatient (CLI) | payer OTHER, SELFPAY | END 2023-10-07 20:01 | disposition home or self-care (01) | PROVIDERS: PCP Nurse Practitioner Family; Visit Provider Nurse Practitioner Family | DX: G47.33 Obstructive sleep apnea (adult) (pediatric) (principal) | CPT/HCPCS: 95811 ==

== ENCOUNTER 2023-10-12 06:45 | Outpatient (CLI) | payer OTHER, SELFPAY ==
--- NOTE | 2023-10-12 07:15 | USCV_ITS ---
Adriana Yuan Age: 73 Gender: F : 1950 Exam Date: 10/12/2023 07:06 Ordering Phys: Keith Barton MD ([email or web address]) Technologist: MENDEZ [place] [facility] [place]ication: Murmur BP: / HR: 44 Rhythm: Sinus Technical Quality: Adequate MEASUREMENTS (Male / Female) Normal Values 2D ECHO LV Diastolic Diameter PLAX 4.7 cm 4.2 - 5.9 / 3.9 - 5.3 cm IVS Diastolic Thickness 1.3 cm 0.6 - 1.0 / 0.6 - 0.9 cm IVS Systolic Thickness 1.8 cm LVPW Diastolic Thickness 1.3 cm 0.6 - 1.0 / 0.6 - 0.9 cm LVPW Systolic Thickness 1.3 cm LVOT Diameter 2.0 cm LV Ejection Fraction 2D Teich 73.0 % LV Ejection Fraction MOD 2C 65.3 % LV Ejection Fraction 2C AL 66.1 % LA Diameter 3.3 cm RA Systolic Volume 4C AL 22.6 ml RA Systolic Volume 4C MOD 21.9 ml IVC Diameter 1.9 cm M-MODE LA Ao Ratio MM 1.3 AV Cusp Separation MM 1.6 cm DOPPLER AV Peak Velocity 148.0 cm/s LVOT Peak Velocity 110.0 cm/s AV Area Cont Eq vti 2.3 cm squared AV Area Cont Eq pk 2.4 cm squared MV Peak Velocity 120.0 cm/s MV Area PHT 2.8 cm squared Mitral E to A Ratio 1.0 TV Peak Velocity 76.3 cm/s TR Peak Velocity 107.5 cm/s TR Peak Gradient 4.6 mmHg TR Mean Velocity 106.0 cm/s TR Mean Gradient 5.0 mmHg TR Velocity Time Integral 40.0 cm TV Peak E Velocity 63.0 cm/s Right Atrial Pressure 3.0 mmHg Pulmonary Artery Systolic Pressu 7.6 mmHg PV Peak Velocity 81.0 cm/s RV Ejection Time 0.3 s FINDINGS Left Ventricle Normal left ventricular size and systolic function, EF 65%.mild left ventricular hypertrophy. No regional wall motion abnormalities. Grade I/IV diastolic dysfunction (abnormal relaxation filling pattern), normal to mildly elevated filling pressures. Right Ventricle The right ventricle is normal in size and function. Right Atrium The right atrium is normal in size. Left Atrium The left atrium is normal in size. Mitral Valve Trace mitral valve regurgitation. Aortic Valve No gross abnormalities noted Tricuspid Valve No gross abnormalities noted Pulmonic Valve No gross abnormalities noted Pericardium Normal pericardium without effusion. Aorta Normal ascending aorta dimension. IVC Normal inferior vena cava. CONCLUSIONS Normal left ventricular size and systolic function, EF 65%.mild left ventricular hypertrophy. No regional wall motion abnormalities. Grade I/IV diastolic dysfunction (abnormal relaxation filling pattern), normal to mildly elevated filling pressures. Trace mitral valve regurgitation. There is no pericardial effusion. There are no intracardiac masses. Compared to the study from 11/12/2016, there may not be significant change Dr Keith Barton MD FACC (Electronically Signed) Final Date: 14 October 2023 21:13 S
== END 2023-10-12 06:46 | disposition home or self-care (01) ==
LOC: RAD 06:45
PROVIDERS: PCP Nurse Practitioner Family; Visit Provider Internal Medicine Cardiovascular Disease
DX: R06.09 Other forms of dyspnea (principal); I51.7 Cardiomegaly
CPT/HCPCS: 93306

== ENCOUNTER 2023-10-20 07:39 | Outpatient (CLI) | payer MEDICARE, SELFPAY | END 2023-10-20 07:40 | disposition home or self-care (01) | PROVIDERS: PCP Nurse Practitioner Family; Visit Provider Internal Medicine Pulmonary Disease | DX: J44.9 Chronic obstructive pulmonary disease, unspecified (principal) | CPT/HCPCS: 94010; 94618; 94726; 94729 ==

== ENCOUNTER 2023-10-20 10:57 | Outpatient (CLI) | payer MEDICARE, SELFPAY ==
--- NOTE | 2023-10-20 11:05 | MM_ITS ---
WS: [id number] BILATERAL 3D TOMOSYNTHESIS DIGITAL SCREENING MAMMOGRAPHY WITH CAD CLINICAL INFORMATION: SCREENING HISTORY: Screening mammogram. No current complaints. COMPARISON: 2022 TECHNIQUE: Bilateral CC and MLO views. FINDINGS: The breasts are composed of heterogeneous fibroglandular density tissue, which can limit the detectio n of small underlying mass lesions. No suspicious mass, asymmetry, calcifications, or architectural d istortion. No evidence of malignancy. Punctate and lucent centered calcifications. IMPRESSION: MM/[place] [id number] BI-RADS: 2-Benign FOLLOW UP: 1 Year Follow-up Recommend return to annual screening mammography.
== END 2023-10-20 10:58 | disposition home or self-care (01) ==
LOC: RAD 10:58
PROVIDERS: PCP Nurse Practitioner Family; Visit Provider Nurse Practitioner Family
DX: Z12.31 Encounter for screening mammogram for malignant neoplasm of breast (principal)
CPT/HCPCS: 77063; 77067

== ENCOUNTER → 2023-10-21 09:01 | Outpatient (BNVA) | payer MEDICARE, SELFPAY | PROVIDERS: PCP Nurse Practitioner Family; Visit Provider Nurse Practitioner Family | DX: E11.22 Type 2 diabetes mellitus with diabetic chronic kidney disease (principal); N18.2 Chronic kidney disease, stage 2 (mild); E55.9 Vitamin D deficiency, unspecified | CPT/HCPCS: 80053; 80061; 82306; 82607; 83036; 85025 ==

== ENCOUNTER 2023-10-27 15:07 | Outpatient (CLI) | payer MEDICARE, SELFPAY ==
--- NOTE | 2023-10-27 15:30 | XR_ITS ---
WS: [id number] DEXA (DUAL ENERGY X-RAY ABSORPTIOMETRY) Bone mineral density was performed using a [employer] machine. HISTORY: Z78.0 - Asymptomatic menopausal state COMPARISON: None available. Lumbar spine BMD (L1-L4): 0.781 g/cm2 T score: -3.3 Z score: -1.9 Total hip BMD: Left: 0.703 g/cm2. T score: -2.4 Z score: -1.0 Right: 0.695 g/cm2. T score: -2.5 Z score: -1.1 10 year probability of a major osteoporotic fracture is 20.1%. IMPRESSION: OSTEOPOROSIS based upon the WHO classification for females.
== END 2023-10-27 15:08 | disposition home or self-care (01) ==
LOC: RAD 15:08
PROVIDERS: PCP Nurse Practitioner Family; Visit Provider Nurse Practitioner Family
DX: Z78.0 Asymptomatic menopausal state (principal); M81.0 Age-related osteoporosis without current pathological fracture
CPT/HCPCS: 77080

== ENCOUNTER → 2023-11-05 09:54 | Outpatient (BNVA) | payer MEDICARE, SELFPAY | PROVIDERS: PCP Nurse Practitioner Family; Visit Provider Specialist | DX: M17.11 Unilateral primary osteoarthritis, right knee (principal); Z71.89 Other specified counseling | CPT/HCPCS: 20610; J7318 ==

== ENCOUNTER → 2023-11-16 13:54 | Outpatient (BNVA) | payer MEDICARE, SELFPAY | PROVIDERS: PCP Nurse Practitioner Family; Visit Provider Internal Medicine Pulmonary Disease | DX: J44.9 Chronic obstructive pulmonary disease, unspecified (principal); F17.200 Nicotine dependence, unspecified, uncomplicated; G47.30 Sleep apnea, unspecified; Z99.89 Dependence on other enabling machines and devices | CPT/HCPCS: 99214 ==

== ENCOUNTER 2023-12-28 09:33 | Outpatient (CLI) | payer MEDICARE, SELFPAY ==
--- NOTE | 2023-12-28 10:00 | CT_ITS ---
WS: [id number] LDCT LUNG CANCER SCREENING TECHNIQUE: Noncontrast CT of the chest with coronal and sagittal reformatted images. CLINICAL INFORMATION: Cancer Screen COMPARISON: CT 12/25/2022 DLP: 62.32 mGy.cm DIvol: Mean CTDIvol: 1.30 (mGy) All CT scans at [facility] use at least one of these dose optimization techniques: automat ed exposure control; mA and/or kV adjustment per patient size (includes targeted exams where dose is matched to clinical indication); or iterative reconstruction. FINDINGS: Calcified granuloma RIGHT middle lobe. Subpleural nodule LEFT lower lobe measuring 4 mm unc hanged. No new suspicious pulmonary parenchymal opacities. Aortic calcification. Coronary calcification. No mediastinal or hilar lymphadenopathy. No axillary ly mphadenopathy. Adrenal glands are normal. Normal GE junction. Noncontrast spleen is normal. Moderate thoracic kyphosis. CT/CT lung screening [id number] IMPRESSION: LUNG-RADS: 2-Benign Appearance or Behavior FOLLOW UP: 12 Month: Continue annual screening with LDCT
== END 2023-12-28 09:34 | disposition home or self-care (01) ==
LOC: RAD 09:33
PROVIDERS: PCP Nurse Practitioner Family; Visit Provider Internal Medicine Pulmonary Disease
DX: F17.210 Nicotine dependence, cigarettes, uncomplicated (principal); J84.10 Pulmonary fibrosis, unspecified; I70.0 Atherosclerosis of aorta; M40.204 Unspecified kyphosis, thoracic region; I25.10 Atherosclerotic heart disease of native coronary artery without angina pectoris
CPT/HCPCS: 71271

== ENCOUNTER → 2024-02-04 09:24 | Outpatient (BNVA) | payer MEDICARE, SELFPAY | PROVIDERS: PCP Nurse Practitioner Family; Visit Provider Nurse Practitioner Family | DX: M54.6 Pain in thoracic spine (principal); R07.81 Pleurodynia; E55.9 Vitamin D deficiency, unspecified; E11.22 Type 2 diabetes mellitus with diabetic chronic kidney disease; N18.2 Chronic kidney disease, stage 2 (mild) | CPT/HCPCS: 80053; 80061; 82306; 82607; 83036; 84443; 85025 ==

== ENCOUNTER 2024-02-14 14:42 | Outpatient (CLI) | payer MEDICARE, SELFPAY ==
--- NOTE | 2024-02-14 14:46 | XRR_ITS ---
PROCEDURE INFORMATION: Exam: XR Thoracic Spine Exam date and time: 02/14/2024 2:49 PM Age: 73 years old Clinical indication: Pain in thoracic spine; Additional info: M54.6 - pain in thoracic spine TECHNIQUE: Imaging protocol: Radiologic exam of the thoracic spine. Views: 3 views. COMPARISON: CR XR ribs RT 2V* [id number] 02/14/2024 2:49 PM FINDINGS: Bones/joints: Vertebral heights and alignments are grossly maintained without evidence of acute fracture or subluxation. Detailed evaluation is limited by overlapping structures. Pedicles are grossly symmetric. Mild-moderate multilevel degenerative changes. Soft tissues: Grossly unremarkable. XR/XR thoracic spine 3V* [id number] IMPRESSION: 1. No evidence of fracture or subluxation of the thoracic spine.
--- NOTE | 2024-02-14 14:46 | XRR_ITS ---
PROCEDURE INFORMATION: Exam: XR Right Ribs Exam date and time: 02/14/2024 2:49 PM Age: 73 years old Clinical indication: Pleurodynia; Patient HX: Pain in the t-spine and posterior rib pain for the last 1-2 years. ; Additional info: R07.81 - pleurodynia TECHNIQUE: Imaging protocol: Radiologic exam of the right ribs. Views: 2 views. COMPARISON: CT lung screening [id number] 12/28/2023 10:17 AM FINDINGS: Bones/joints: No evidence of displaced rib fracture. Lungs: No evidence of focal consolidation, pneumothorax or pleural effusion. Soft tissues: Grossly unremarkable. XR/XR ribs RT 2V* [id number] IMPRESSION: 1. No evidence of displaced rib fracture. If there is ongoing clinical concern, consider correlation with CT.
== END 2024-02-14 14:43 | disposition home or self-care (01) ==
LOC: RAD 14:45
PROVIDERS: PCP Nurse Practitioner Family; Visit Provider Nurse Practitioner Family
DX: M51.34 Other intervertebral disc degeneration, thoracic region (principal); R07.81 Pleurodynia
CPT/HCPCS: 71100; 72072

== ENCOUNTER 2024-03-02 10:30 | Outpatient (CLI) | payer MEDICARE, SELFPAY ==
--- NOTE | 2024-03-02 10:30 | CT_ITS ---
WS: [id number] CT chest wo con [id number] HISTORY: R07.81 - Pleurodynia TECHNIQUE: Axial imaging performed through the thorax. Coronal and sagittal reformats are submitted. All CT scans at [facility] use at least one of these dose optimization techniques: automated exposure control; mA and/or kV adjustment per patient size (includes targeted exams where dose is mat ched to clinical indication); or iterative reconstruction. CONTRAST: None DLP: 341.92 mGy.cm COMPARISON: 12/28/2023 Lungs and central airway: Lungs are well aerated. Mild pulmonary hyperexpansion. New areas of groundg lass attenuation are now noted. 2 areas of groundglass attenuation LEFT upper lobe. The largest is an terior. There are few additional areas of groundglass attenuation near the lingula. There are 2 subce ntimeter pulmonary nodules in the LEFT lower lobe. 1 of these was present on the prior study of 2023. There is a smaller more subtle 3 mm nodule that was not present. No pneumonia. Pleura: Normal. No pleural effusion. Heart and pericardium: Normal size heart with no pericardial effusion. Mediastinum and radha: Small mediastinal and hilar lymph nodes. Vessels: Mild atherosclerosis aorta. Normal size pulmonary artery. Chest wall and lower neck: No soft tissue masses. Upper abdomen: Small hiatal hernia. No adrenal mass. Mild suprarenal aortic calcification. Osseous structures: No destructive process. CT/CT chest wo con [id number] IMPRESSION: 1. New subtle areas of groundglass attenuation in the LEFT upper lobe and the lingula. These may be related to pneumonitis. 2. New 3 mm nodule LEFT lower lobe and a previously described 4 mm nodule in t he LEFT lower lobe also. 3. Recommendation: 6-month chest CT follow-up after treatment for pneumonitis. 4. Mild atherosclerosis aorta.
== END 2024-03-02 10:32 | disposition home or self-care (01) ==
PROVIDERS: PCP Nurse Practitioner Family; Visit Provider Nurse Practitioner Family
DX: R07.81 Pleurodynia (principal); R91.8 Other nonspecific abnormal finding of lung field; I70.0 Atherosclerosis of aorta
CPT/HCPCS: 71250

== ENCOUNTER → 2024-04-06 09:41 | Outpatient (BNVA) | payer MEDICARE, SELFPAY | PROVIDERS: PCP Nurse Practitioner Family; Visit Provider Nurse Practitioner Family | DX: I10 Essential (primary) hypertension (principal); F17.210 Nicotine dependence, cigarettes, uncomplicated | CPT/HCPCS: 99213 ==

== ENCOUNTER → 2024-05-08 08:56 | Outpatient (BNVA) | payer MEDICARE, SELFPAY | PROVIDERS: PCP Nurse Practitioner Family; Visit Provider Nurse Practitioner Family | DX: N18.2 Chronic kidney disease, stage 2 (mild) (principal); E11.22 Type 2 diabetes mellitus with diabetic chronic kidney disease; E55.9 Vitamin D deficiency, unspecified | CPT/HCPCS: 80053; 80061; 82043; 82306; 83036; 85025 ==

== ENCOUNTER → 2024-05-12 07:45 | Outpatient (BNVA) | payer MEDICARE, SELFPAY | PROVIDERS: PCP Nurse Practitioner Family; Visit Provider Specialist | DX: M17.11 Unilateral primary osteoarthritis, right knee (principal); Z71.89 Other specified counseling | CPT/HCPCS: 20610; J7318 ==

== ENCOUNTER 2024-05-17 12:59 | Outpatient (CLI) | payer MEDICARE, SELFPAY ==
--- NOTE | 2024-05-17 13:45 | MR_ITS ---
WS: [id number] MRI THORACIC SPINE WITHOUT CONTRAST TECHNIQUE: Sagittal T1, T2 and STIR imaging. Axial T2 imaging. Noncontrast imaging obtained. CLINICAL INFORMATION: M54.6 - Pain in thoracic spine COMPARISON: None. FINDINGS: Mild thoracic curve. Mild thoracic kyphosis. No acute appearing compression fractures. Hypertrophic c hanges in the mid and lower thoracic spine. Mild to moderate facet arthropathy lower thoracic spine. Cord signal is normal. Tiny central protrusions at T5-T6, T6-T7, T7-T8, and T8-T9 without significant spinal canal or forami nal narrowing. Shallow central protrusions at T10-T12. Normal paravertebral soft tissues. Adrenal glands are normal. Normal caliber thoracic aorta. MR/MR thoracic spin wo con* [id number] IMPRESSION: 1. Mild thoracic curve. Mild thoracic kyphosis. 2. No acute appearing compression fractures. 3. Cord signal is normal. 4. Mild spondylitic changes with shallow central protrusions described above.
== END 2024-05-17 13:00 | disposition home or self-care (01) ==
LOC: RAD 12:59
PROVIDERS: PCP Nurse Practitioner Family; Visit Provider Nurse Practitioner Family
DX: M46.94 Unspecified inflammatory spondylopathy, thoracic region (principal)
CPT/HCPCS: 72146

== ENCOUNTER → 2024-06-12 15:21 | Outpatient (BNVA) | payer MEDICARE, SELFPAY | PROVIDERS: PCP Nurse Practitioner Family; Visit Provider Nurse Practitioner Family | DX: M25.571 Pain in right ankle and joints of right foot (principal) | CPT/HCPCS: 73610 ==

== ENCOUNTER → 2024-08-07 09:03 | Outpatient (BNVA) | payer MEDICARE, SELFPAY | PROVIDERS: PCP Nurse Practitioner Family; Visit Provider Nurse Practitioner Family | DX: E11.22 Type 2 diabetes mellitus with diabetic chronic kidney disease (principal); N18.2 Chronic kidney disease, stage 2 (mild); E55.9 Vitamin D deficiency, unspecified | CPT/HCPCS: 80053; 80061; 82306; 82607; 83036; 85025 ==

== ENCOUNTER 2024-09-22 10:22 | Outpatient (CLI) | payer MEDICARE, SELFPAY ==
--- NOTE | 2024-09-22 11:00 | CTR_ITS ---
PROCEDURE INFORMATION: Exam: CT Chest Without Contrast; Diagnostic Exam date and time: 09/22/2024 10:40 AM Age: 74 years old Clinical indication: Condition or disease; Lung condition and disease; Pulmonary nodule, solitary; Additional info: R91.1 - solitary pulmonary nodule TECHNIQUE: Imaging protocol: Diagnostic computed tomography of the chest without contrast. Radiation optimization: All CT scans at this facility use at least one of these dose optimization techniques: automated exposure control; mA and/or kV adjustment per patient size (includes targeted exams where dose is matched to clinical indication); or iterative reconstruction. COMPARISON: CT chest wo con [id number] 03/02/2024 10:59 AM RADIATION DOSE METRICS: Total DLP (mGy-cm): 347.61 FINDINGS: Lungs: Lung windows demonstrate stable appearance of 3 and 4 mm nodules within the lower left lung when correlated with previous exam. Small amount of ground-glass opacity on the left is stable and unchanged with previous exam, as well. This suggests minimal chronic change. Benign calcified granuloma noted anterior lower right lung, unchanged with prior exam. No interval new opacity or infiltrate. No consolidation. No interval new nodule. Pleural spaces: No pleural effusion or pneumothorax. Heart: No cardiomegaly or pericardial effusion. Moderate coronary artery calcification. Findings are unchanged with previous exam. Lymph nodes: Small benign calcified lymph nodes inferior right hilum. This is unchanged with prior exam. No significant lymphadenopathy. Vasculature: Mild to moderate arteriosclerosis of the thoracic aorta. Thoracic aorta and pulmonary arteries appear unremarkable for unenhanced exam. Diaphragm: Small hiatal hernia, as noted with prior exam. Bones/joints: Spondylotic change within the spine. No acute osseous abnormality. Soft tissues: Unremarkable. CT/CT chest wo con [id number] IMPRESSION: 1. Mild benign healed granulomatous disease. 2. Stable appearance of small 3 and 4 mm nodules lower left lung with previous exam. Annual follow-up can be performed. 3. [id number] arteriosclerosis thoracic aorta and moderate coronary artery calcification.
== END 2024-09-22 10:23 | disposition home or self-care (01) ==
PROVIDERS: PCP Nurse Practitioner Family; Visit Provider Nurse Practitioner Family
DX: R91.8 Other nonspecific abnormal finding of lung field (principal); D71 Functional disorders of polymorphonuclear neutrophils; I70.0 Atherosclerosis of aorta; I25.10 Atherosclerotic heart disease of native coronary artery without angina pectoris; R59.0 Localized enlarged lymph nodes; K44.9 Diaphragmatic hernia without obstruction or gangrene; M47.899 Other spondylosis, site unspecified
CPT/HCPCS: 71250

== ENCOUNTER → 2024-10-05 15:15 | Outpatient (BNVA) | payer MEDICARE, SELFPAY | PROVIDERS: PCP Nurse Practitioner Family; Visit Provider Internal Medicine Cardiovascular Disease | DX: I45.10 Unspecified right bundle-branch block (principal); E78.2 Mixed hyperlipidemia; I10 Essential (primary) hypertension; F17.200 Nicotine dependence, unspecified, uncomplicated; I25.10 Atherosclerotic heart disease of native coronary artery without angina pectoris | CPT/HCPCS: 99213 ==

== ENCOUNTER 2024-10-24 10:59 | Outpatient (CLI) | payer MEDICARE, SELFPAY ==
--- NOTE | 2024-10-24 11:00 | MM_ITS ---
WS: [id number] VIEWS: MLO and CC views both breasts. 3D digital tomosynthesis is also included in this exam. Comparison made with prior exam of 08/19/2007, 09/13/2008, 11/13/2011, 11/18/2012, 11/29/2013, 11/30/2014, 11/13/2015, 09/24/2017, 10/08/2022, 10/20/2023.. Findings: The breasts are heterogeneously dense, which may obscure small masses. No suspicious mass, tumor calcification or architectural distortion. Stable appearing parenchymal densities in both breasts. MM/MM scr BI tomosynthesis [id number] Impression: BI-RADS: 2 - Benign FOLLOW-UP: 1 Year Follow-up This mammogram was also analyzed by the Computer Aided Detection System [employer].
== END 2024-10-24 11:00 | disposition home or self-care (01) ==
PROVIDERS: PCP Nurse Practitioner Family; Visit Provider Nurse Practitioner Family
DX: Z12.31 Encounter for screening mammogram for malignant neoplasm of breast (principal); R92.333 Mammographic heterogeneous density, bilateral breasts; N64.89 Other specified disorders of breast
CPT/HCPCS: 77063; 77067

== ENCOUNTER → 2024-11-08 12:41 | Outpatient (BNVA) | payer MEDICARE, SELFPAY | PROVIDERS: PCP Nurse Practitioner Family; Visit Provider Nurse Practitioner Family | DX: I10 Essential (primary) hypertension (principal); E78.2 Mixed hyperlipidemia; E11.22 Type 2 diabetes mellitus with diabetic chronic kidney disease; N18.2 Chronic kidney disease, stage 2 (mild) | CPT/HCPCS: 80053; 80061; 82306; 83036; 84443; 85025 ==

== ENCOUNTER → 2024-11-17 08:30 | Outpatient (BNVA) | payer MEDICARE, SELFPAY | PROVIDERS: PCP Nurse Practitioner Family; Visit Provider Specialist | DX: M17.11 Unilateral primary osteoarthritis, right knee (principal); G89.29 Other chronic pain | CPT/HCPCS: 20610; J7318 ==

== ENCOUNTER → 2025-02-05 10:55 | Outpatient (BNVA) | payer MEDICARE, SELFPAY | PROVIDERS: PCP Nurse Practitioner Family; Visit Provider Nurse Practitioner Family | DX: E11.22 Type 2 diabetes mellitus with diabetic chronic kidney disease (principal); N18.2 Chronic kidney disease, stage 2 (mild); E78.2 Mixed hyperlipidemia | CPT/HCPCS: 80053; 80061; 83036; 85025 ==

== ENCOUNTER → 2025-05-09 08:11 | Outpatient (BNVA) | payer MEDICARE, SELFPAY | PROVIDERS: PCP Nurse Practitioner Family; Visit Provider Nurse Practitioner Family | DX: E11.22 Type 2 diabetes mellitus with diabetic chronic kidney disease (principal); N18.2 Chronic kidney disease, stage 2 (mild); E78.2 Mixed hyperlipidemia; M81.0 Age-related osteoporosis without current pathological fracture | CPT/HCPCS: 80053; 80061; 82306; 82607; 82746; 83036; 84443; 85025 ==

== ENCOUNTER → 2025-06-01 08:24 | Outpatient (BNVA) | payer MEDICARE, SELFPAY | PROVIDERS: PCP Nurse Practitioner Family; Visit Provider Specialist | DX: M17.11 Unilateral primary osteoarthritis, right knee (principal) | CPT/HCPCS: 20610; J7318 ==